=== PATIENT | female | born 1930 | race Caucasian/White ===

== ENCOUNTER 2021-02-21 09:00 | Inpatient (IN) ==
[2021-02-21] MEDS ORDERED: SODIUM CHLORIDE 0.9% 1,000 ML IV STA (09:32)
[2021-02-21 10:32] LABS: Basophils # 0.1 10*3/uL (0.0-0.2); Basophils % 1.5 % (0.0-0.8); Eosinophils # 0.1 10*3/uL (0.0-0.87); Eosinophils % 2.6 % (0.00-10.9); Hemoglobin 11.2 GM/DL (12.0-16.0); Immature Granulocytes % 0.2 %; Immature Granulocytes Absolute 0.01 #; Lymphocytes # 1.3 10*3/uL (1.4-4.0); Lymphocytes % 22.9 % (21.3-54.2); Mean Corpuscular Volume 96.7 FL (87-102); Mean Platelet Volume 11.5 FL (9.6-12.0); Monocytes % 7.9 % (1.7-12.7); Neutrophils % 64.9 % (38.7-73.9); Platelet Count 224 T/CUMM (130-400); Red Blood Count 3.62 MC/CUMM (3.8-5.5); Red Cell Distribution Width 13.2 % (9.3-17.3); White Blood Count 5.5 T/CUMM (4-12)
[2021-02-21 10:51] LABS: Albumin 2.8 G/DL (3.4-5.0); Bilirubin,Total 0.6 MG/DL (0.20-1.00); Calcium 8.6 MG/DL (8.5-10.1); Osmolality,Calculated 297.7 MOS/KG (273-304); Total Protein 5.8 G/DL (6.4-8.2)
[2021-02-21 12:04] LABS: Bilirubin,Urine Negative (Negative); Blood, Urine Negative (Negative); Glucose,Urine (UA) Negative (Negative); Ketones,Urine Negative (Negative); Mucus,Urine Occasional /LPF (Occasional); Nitrite,Urine Negative (Negative); Protein,Urine 30 MG/DL; RBC,Urine 1 /HPF (0-4); Urine Appearance CLEAR (Clear); Urine Color Yellow (Yellow); Urine Specific Gravity 1.016 (1.001-1.035); Urine Urobilinogen < 2.0 EU/DL (<2.0)
[2021-02-21] MEDS ORDERED: VANCOMYCIN INJ 1,000 MG in SODIUM CHLORIDE 0.9% 250 ML IV STA ×2 (12:14→12:19)
[2021-02-21] MEDS ORDERED: DOCUSATE SODIUM 100 MG CAPSULE PO PRN (13:21)
[2021-02-21] MEDS ORDERED: GLUCAGON 1 MG VIAL IM PRN (13:21)
[2021-02-21] MEDS ORDERED: hydrALAZINE 20 MG/1 ML VIAL IV PRN (13:21)
[2021-02-21] MEDS ORDERED: ONDANSETRON 4 MG/2 ML VIAL IV PRN (13:21)
[2021-02-21] MEDS ORDERED: ALUMINUM/MAGNES/SIMETH MAX STR 30 ML UDCUP PO PRN (13:21)
[2021-02-21] MEDS ORDERED: DEXTROSE 50% 25 GM/50 ML SYRINGE IV PRN (13:21)
[2021-02-21] MEDS ORDERED: POTASSIUM CHLORIDE 20 MEQ TABLET PO ONE (13:26)
[2021-02-21] MEDS ORDERED: HEPARIN 5,000 UNIT/1 ML VIAL SUBCUT SCH (13:30)
[2021-02-21] MEDS: cefTRIAXone 1,000 MG in SODIUM CHLORIDE 0.9% 100 ML IV SCH (16:08)
[2021-02-21] MEDS: INSULIN LISPRO 100 UNIT/ML SUBCUT SCH ×2 (19:18→22:28)
[2021-02-22 05:29] LABS: Basophils # 0.1 10*3/uL (0.0-0.2); Basophils % 1.2 % (0.0-0.8); Eosinophils # 0.3 10*3/uL (0.0-0.87); Eosinophils % 5.2 % (0.00-10.9); Hematocrit 32.3 VOL% (35.7-47.0); Hemoglobin 10.4 GM/DL (12.0-16.0); Immature Granulocytes % 0.2 %; Immature Granulocytes Absolute 0.01 #; Lymphocytes # 1.2 10*3/uL (1.4-4.0); Mean Corpuscular HGB Conc 32.2 GM/DL (32-36); Mean Platelet Volume 11.6 FL (9.6-12.0); Monocytes % 8.1 % (1.7-12.7); Neutrophils % 61.3 % (38.7-73.9); Platelet Count 197 T/CUMM (130-400); Red Blood Count 3.33 MC/CUMM (3.8-5.5); Red Cell Distribution Width 13.2 % (9.3-17.3); White Blood Count 4.8 T/CUMM (4-12)
[2021-02-22 05:49] LABS: Albumin 2.6 G/DL (3.4-5.0); Bilirubin,Total 0.6 MG/DL (0.20-1.00); Calcium 8.4 MG/DL (8.5-10.1); Osmolality,Calculated 288.8 MOS/KG (273-304); Total Protein 5.4 G/DL (6.4-8.2)
[2021-02-22] MEDS: INSULIN LISPRO 100 UNIT/ML SUBCUT SCH ×4 (08:15→22:13)
[2021-02-22] MEDS: PANTOPRAZOLE 40 MG TABLET PO SCH (08:42)
[2021-02-22] MEDS: cefTRIAXone 1,000 MG in SODIUM CHLORIDE 0.9% 100 ML IV SCH (09:32)
[2021-02-22] MEDS ORDERED: POTASSIUM CHLORIDE 20 MEQ TABLET PO PRN (16:35)
[2021-02-23 05:31] LABS: Basophils # 0.1 10*3/uL (0.0-0.2); Basophils % 1.3 % (0.0-0.8); Eosinophils # 0.3 10*3/uL (0.0-0.87); Eosinophils % 4.7 % (0.00-10.9); Hematocrit 35.6 VOL% (35.7-47.0); Hemoglobin 11.5 GM/DL (12.0-16.0); Immature Granulocytes % 0.2 %; Immature Granulocytes Absolute 0.01 #; Lymphocytes # 1.5 10*3/uL (1.4-4.0); Lymphocytes % 27.8 % (21.3-54.2); Mean Corpuscular HGB Conc 32.3 GM/DL (32-36); Mean Corpuscular Volume 96.5 FL (87-102); Mean Platelet Volume 11.1 FL (9.6-12.0); Platelet Count 221 T/CUMM (130-400); Red Blood Count 3.69 MC/CUMM (3.8-5.5); Red Cell Distribution Width 13.2 % (9.3-17.3); White Blood Count 5.4 T/CUMM (4-12)
[2021-02-23 05:51] LABS: Anisocytosis Slight; Macrocytosis 1+; Platelet Estimate Normal
[2021-02-23 06:00] LABS: Calcium 8.7 MG/DL (8.5-10.1); Osmolality,Calculated 284.1 MOS/KG (273-304); Potassium 2.9 MMOL/L (3.5-5.1)
[2021-02-23] MEDS: ACETAMINOPHEN 325 MG TABLET PO PRN ×2 (06:46→23:46)
[2021-02-23] MEDS: PANTOPRAZOLE 40 MG TABLET PO SCH (10:03)
[2021-02-23] MEDS: INSULIN LISPRO 100 UNIT/ML SUBCUT SCH ×4 (10:03→21:29)
[2021-02-23] MEDS: cefTRIAXone 1,000 MG in SODIUM CHLORIDE 0.9% 100 ML IV SCH (11:13)
[2021-02-23] MEDS: BISOPROLOL 5 MG TABLET PO SCH (11:16)
[2021-02-23] MEDS: amLODIPine 5 MG TABLET PO SCH (11:19)
[2021-02-23] MEDS ORDERED: VANCOMYCIN INJ 1,000 MG in SODIUM CHLORIDE 0.9% 250 ML IV SCH (13:00)
[2021-02-24 05:39] LABS: Basophils # 0.1 10*3/uL (0.0-0.2); Basophils % 1.5 % (0.0-0.8); Eosinophils # 0.4 10*3/uL (0.0-0.87); Eosinophils % 6.1 % (0.00-10.9); Hematocrit 37.2 VOL% (35.7-47.0); Hemoglobin 12.1 GM/DL (12.0-16.0); Immature Granulocytes % 0.1 %; Immature Granulocytes Absolute 0.01 #; Lymphocytes # 2.1 10*3/uL (1.4-4.0); Lymphocytes % 29.5 % (21.3-54.2); Mean Corpuscular HGB Conc 32.5 GM/DL (32-36); Mean Corpuscular Volume 96.4 FL (87-102); Mean Platelet Volume 11.7 FL (9.6-12.0); Monocytes % 7.6 % (1.7-12.7); Neutrophils % 55.2 % (38.7-73.9); Platelet Count 244 T/CUMM (130-400); Red Blood Count 3.86 MC/CUMM (3.8-5.5); Red Cell Distribution Width 13.2 % (9.3-17.3); White Blood Count 7.2 T/CUMM (4-12)
[2021-02-24 06:02] LABS: Calcium 9.2 MG/DL (8.5-10.1)
[2021-02-24] MEDS: ACETAMINOPHEN 325 MG TABLET PO PRN (06:25)
[2021-02-24] MEDS: BISOPROLOL 5 MG TABLET PO SCH (09:33)
[2021-02-24] MEDS: amLODIPine 5 MG TABLET PO SCH (09:33)
[2021-02-24] MEDS: PANTOPRAZOLE 40 MG TABLET PO SCH (09:33)
[2021-02-24] MEDS: cefTRIAXone 1,000 MG in SODIUM CHLORIDE 0.9% 100 ML IV SCH (09:33)
[2021-02-24] MEDS: INSULIN LISPRO 100 UNIT/ML SUBCUT SCH ×2 (10:25→12:40)
[2021-02-24] MEDS ORDERED: POTASSIUM CHLORIDE 20 MEQ TABLET PO SCH (10:30)
[2021-02-24 12:26] VITALS: BP 131/60
[2021-02-24] MEDS ORDERED: POTASSIUM CHLORIDE 20 MEQ TABLET PO ONE (12:41)
== END 2021-02-24 13:10 | disposition home health service (06) | DRG 603 ==
LOC: EDUNIT# → N.ED 09:00 → SUATTDRO 13:21 → N.EDINP 13:21 → N.5E 18:54
PROVIDERS: ADMIT Internal Medicine; ATTEND Emergency Medicine